=== PATIENT | female | born 1960 | race Caucasian/White ===

== ENCOUNTER 2018-06-04 21:20 | Emergency (ER) | payer OTHER ==
[~2018-06-04] VITALS: Ht 157.5 cm; Wt 80.7 kg
[~2018-06-04 21:20] MED LIST: ALPR0.5T PO; AMLO5TAB7 PO; FURO-68 PO; LITH300C PO; OXYC1TAB15 PO; ROPI0.5T PO; TIOT18CA IH
[2018-06-04] MEDS ORDERED: IV NORMAL SALINE 1000ML BAG 1,000 ML IV SCH (21:40)
[2018-06-04] MEDS ORDERED: ONDANSETRON PF 4 MG/2 ML VIAL. IV ONE (21:45)
--- NOTE | 2018-06-04 21:45 | PHYS DOC ---
Past Medical History Past Medical History: Bipolar, Cancer (cervical, breast, and anal cancer) Past Surgical History: Appendectomy Smoking: Cigarettes, 1 Pack Per Day Adult General Chief Complaint Chief Complaint: ABDOMINAL PAIN HPI HPI Patient is a 57-year-old female who presents to the emergency department for evaluation. She states that for the past week, she has had generalized abdominal pain, along with vomiting whenever she tries to eat. She states that she has been having bowel movements, but they have been hard. She has not had any bloody emesis or bloody stools. She denies any chest pain or shortness of breath. Eating seems to worsen her pain and precipitate or vomiting. There are no alleviating factors to her symptoms. She has not had any fevers or chills. She is currently followed by [facility] for anal cancer, she states her last chemotherapy was about a year ago. Review of Systems Review of Systems Constitutional: Denies fever or chills [] Eyes: Denies change in visual acuity, redness, or eye pain [] HENT: Denies nasal congestion or sore throat [] Respiratory: Denies cough or shortness of breath [] Cardiovascular:The patient denies any shortness of breath, chest pain, palpitations, or orthopnea [] GI: No additional information not addressed in HPI [] : Denies dysuria or hematuria [] Musculoskeletal: Denies back pain or joint pain [] Integument: Denies rash or skin lesions [] Neurologic: Denies headache, focal weakness or sensory changes [] Endocrine: Denies polyuria or polydipsia [] All other systems were reviewed and found to be within normal limits, except as documented in this note. Current Medications Current Medications Current Medications Medications (Trade) Dose Ordered Sig/Alise Start Time Stop Time Status Last Admin Dose Admin Info (CONTRAST GIVEN -- Rx MONITORING) 1 each PRN DAILY PRN 06/04/18 22:30 06/06/18 22:29 Iohexol (Omnipaque 300 Mg/ml) 60 ml 1X ONCE 06/04/18 22:15 06/04/18 22:17 DC 06/04/18 22:31 60 ML Morphine Sulfate (Morphine Sulfate) 4 mg PRN Q15MIN PRN 06/04/18 21:45 06/05/18 21:44 06/04/18 23:01 4 MG Ondansetron HCl (Zofran) 4 mg 1X ONCE 06/04/18 21:45 06/04/18 21:46 DC 06/04/18 21:57 4 MG Sodium Chloride 1,000 ml @ 1,000 mls/hr Q1H 06/04/18 21:40 06/04/18 22:39 DC 06/04/18 21:56 1,000 MLS/HR Allergies Allergies Allergies Coded Allergies Type Severity Reaction Last Updated Verified Penicillins Allergy Intermediate Hives 07/31/15 Yes codeine Allergy Intermediate Hives 07/31/15 Yes Physical Exam Physical Exam PHYSICAL EXAM: CONSTITUTIONAL: Well developed, well nourished HEAD: normocephalic, atraumatic EENT: PERRL, EOMI. Conjunctivae normal color, sclerae non-icteric; moist mucous membranes. NECK: Supple, non-tender; no meningismus. LUNGS: Lungs CTA, breathing even and unlabored. Normal air movement. HEART: Regular rate and rhythm, no murmur CHEST: No deformity; non-tender ABDOMEN: The abdomen is soft, normal bowel sounds are present, there is diffuse tenderness to palpation to the entire abdomen, without focal tenderness, rebound , guarding, normal bowel sounds are present, the right upper quadrant itself is relatively non-tender, Mann sign is absent, no masses or bruits. EXTREM: Normal ROM; no deformity, no calf tenderness. Normal pulses palpable in all extremities. There is no pedal edema. SKIN: No rash; no diaphoresis NEURO: Alert; normal speech and cognition; CN's grossly intact; strength grossly intact without focal deficit. BACK: No CVA TTP. Current Patient Data Vital Signs Vital Signs Date Time Temp Pulse Resp B/P (MAP) Pulse Ox O2 Delivery O2 Flow Rate FiO2 06/04/18 23:20 77 14 153/66 (95) 96 Room Air 06/04/18 21:24 97.9 97.9 Lab Values Laboratory Tests Test 06/04/18 21:29 06/04/18 21:38 White Blood Count 7.0 x10^3/uL (4.0-11.0) Red Blood Count 3.64 x10^6/uL (3.50-5.40) Hemoglobin 9.4 g/dL (12.0-15.5) L Hematocrit 28.6 % (36.0-47.0) L Mean Corpuscular Volume 79 fL (79-100) Mean Corpuscular Hemoglobin 26 pg (25-35) Mean Corpuscular Hemoglobin Concent 33 g/dL (31-37) Red Cell Distribution Width 21.8 % (11.5-14.5) H Platelet Count 286 x10^3/uL (140-400) Neutrophils (%) (Auto) 74 % (31-73) H Lymphocytes (%) (Auto) 16 % (24-48) L Monocytes (%) (Auto) 7 % (0-9) Eosinophils (%) (Auto) 2 % (0-3) Basophils (%) (Auto) 1 % (0-3) Neutrophils # (Auto) 5.2 x10^3uL (1.8-7.7) Lymphocytes # (Auto) 1.1 x10^3/uL (1.0-4.8) Monocytes # (Auto) 0.5 x10^3/uL (0.0-1.1) Eosinophils # (Auto) 0.1 x10^3/uL (0.0-0.7) Basophils # (Auto) 0.0 x10^3/uL (0.0-0.2) Platelet Estimate Adequate (ADEQUATE) Hypochromasia Slight Anisocytosis Mod Ovalocytes Few Sodium Level 140 mmol/L (136-145) Potassium Level 4.0 mmol/L (3.5-5.1) Chloride Level 104 mmol/L (98-107) Carbon Dioxide Level 24 mmol/L (21-32) Anion Gap 12 (6-14) Blood Urea Nitrogen 11 mg/dL (7-20) Creatinine 1.0 mg/dL (0.6-1.0) Estimated GFR (Cockcroft-Gault) 57.4 BUN/Creatinine Ratio 11 (6-20) Glucose Level 96 mg/dL (70-99) Lactic Acid Level 1.1 mmol/L (0.4-2.0) Calcium Level 8.7 mg/dL (8.5-10.1) Total Bilirubin 0.1 mg/dL (0.2-1.0) L Aspartate Amino Transferase (AST) 18 U/L (15-37) Alanine Aminotransferase (ALT) 15 U/L (14-59) Alkaline Phosphatase 91 U/L (46-116) Troponin I Quantitative < 0.017 ng/mL (0.000-0.055) Total Protein 7.1 g/dL (6.4-8.2) Albumin 3.2 g/dL (3.4-5.0) L Albumin/Globulin Ratio 0.8 (1.0-1.7) L Lipase 196 U/L (73-393) Urine Collection Type Unknown Urine Color Yellow Urine Clarity Clear Urine pH 7.0 Urine Specific [place] 1.010 Urine Protein Negative mg/dL (NEG-TRACE) Urine Glucose (UA) Negative mg/dL (NEG) Urine Ketones (Stick) Negative mg/dL (NEG) Urine Blood Negative (NEG) Urine Nitrite Negative (NEG) Urine Bilirubin Negative (NEG) Urine Urobilinogen Dipstick 0.2 mg/dL (0.2 mg/dL) Urine Leukocyte Esterase Negative (NEG) Urine RBC Rare /HPF (0-2) Urine WBC Rare /HPF (0-4) Urine Squamous Epithelial Cells Few /LPF Urine Bacteria 0 /HPF (0-FEW) Laboratory Tests 06/04/18 21:29 Laboratory Tests 06/04/18 21:29 EKG EKG [Normal sinus rhythm at a rate of 60 beats for minute, leftward axis, normal intervals, nonspecific ST/T changes.] Radiology/Procedures Radiology/Procedures [PROCEDURE: CT ABD PELV W/ IV CONTRST ONLY INDICATION: mid abd pain x 3 weeks, n/v, [id number] 60ml, no priors COMPARISON: None. TECHNIQUE: Axial CT images obtained through the abdomen and pelvis with contrast. One or more of the following individualized dose reduction techniques were utilized for this examination: 1. Automated exposure control; 2. Adjustment of the mA and/or kV according to patient size; 3. Use of iterative reconstruction technique. FINDINGS: Calcific atherosclerosis of abdominal aorta. No intrahepatic bile duct dilation. No peripancreatic fluid collection. Spleen unremarkable. There is some prominence of the bilateral extrarenal pelvis. The urinary bladder is partially distended. Small free fluid in the pelvis. Colonic diverticulosis. Portion of the sigmoid colon is not very distended with wall appearing mildly prominent. Degenerative changes of spine. IMPRESSION: 1. Distention of the bilateral extrarenal pelvis without a definite radiopaque obstructive ureter stone seen. 2. A portion of the sigmoid colon is not distended with prominent appearing wall. There is not definite adjacent inflammatory changes. Could be secondary to a site of contraction but would correlate with symptoms in the region to ensure that there is not a pathologic cause such as stricture or mild inflammation from causes such as diverticulitis.] Course & Med Decision Making Course & Med Decision Making Pertinent Labs and Imaging studies reviewed. (See chart for details) [11:30 PM: The patient's condition remained stable. She is feeling significantly better. She had no vomiting in the emergency department. I discussed test results, the need for close follow-up both with her oncologist, as well as GI for further evaluation, and return precautions. The patient will be covered with antibiotics to cover for the possibility of colitis. Dragon Disclaimer Dragon Disclaimer This electronic medical record was generated, in whole or in part, using a voice recognition dictation system. Departure Departure Impression: Primary Impression: Abdominal pain Additional Impression: Nausea & vomiting Disposition: 01 HOME, SELF-CARE Condition: STABLE Referrals: JONN CUNHA MD (PCP) Patient Instructions: Abdominal Pain, Colitis, Nausea and Vomiting Scripts Promethazine Hcl (PROMETHAZINE HCL) 25 Mg Tablet 1 TAB PO PRN Q6HRS for nausea vomitng, #20 TAB Prov: AMNA TRAMMELL MD 06/04/18 Metronidazole (FLAGYL) 500 Mg Tablet 1 TAB PO BID, #14 TAB Prov: AMNA TRAMMELL MD 06/04/18 Ciprofloxacin Hcl (CIPRO) 500 Mg Tablet 1 TAB PO BID, #14 TAB Prov: AMNA TRAMMELL MD 06/04/18 Problem Qualifiers AMNA TRAMMELL MD Jun 04, 2018 21:45
[2018-06-04 21:52] LABS: BASO % 1 % (0-3); EOS # 0.1 x10^3/uL (0.0-0.7); EOS % 2 % (0-3); HEMATOCRIT 28.6 % (36.0-47.0); HEMOGLOBIN 9.4 g/dL (12.0-15.5); LYMPH # 1.1 x10^3/uL (1.0-4.8); LYMPH % 16 % (24-48); MEAN CORPUSCULAR HEMOGLOBIN 26 pg (25-35); MEAN CORPUSCULAR HGB CONC 33 g/dL (31-37); MEAN CORPUSCULAR VOLUME 79 fL (79-100); MONO # 0.5 x10^3/uL (0.0-1.1); MONO % 7 % (0-9); NEUT # 5.2 x10^3uL (1.8-7.7); NEUT % 74 % (31-73); PLATELET COUNT 286 x10^3/uL (140-400); RED BLOOD COUNT 3.64 x10^6/uL (3.50-5.40); RED CELL DISTRIBUTION WIDTH 21.8 % (11.5-14.5)
[2018-06-04 21:53] LABS: BILIRUBIN,URINE NEGATIVE (NEG); CLARITY,URINE CLEAR; COLOR,URINE YELLOW; NITRITE,URINE NEGATIVE (NEG); PROTEIN,URINE NEGATIVE (NEG-TRACE); UROBILINOGEN,URINE 0.2 mg/dL (0.2 mg/dL)
[2018-06-04] MEDS: MORPHINE SULFATE 4 MG/ML VIAL. IV/SQ PRN ×2 (21:58→23:01)
[2018-06-04 22:02] LABS: BACTERIA,URINE 0 /HPF (0-FEW); RBC,URINE RARE /HPF (0-2); SQUAMOUS EPITHELIAL CELL,UR FEW /LPF; WBC,URINE RARE /HPF (0-4)
[2018-06-04 22:10] LABS: CALCIUM 8.7 mg/dL (8.5-10.1); GFR 57.4
[2018-06-04 22:15] LABS: ANISOCYTOSIS MOD; HYPOCHROMIA SLIGHT; OVALOCYTES FEW; PLT ESTIMATE ADEQUATE (ADEQUATE)
[2018-06-04] MEDS ORDERED: IOHEXOL 300 MG/ML 100ML VIAL. IV ONE (22:15)
[2018-06-04 22:23] LABS: ALBUMIN 3.2 g/dL (3.4-5.0); ALBUMIN/GLOBULIN RATIO 0.8 (1.0-1.7); TOTAL BILIRUBIN 0.1 mg/dL (0.2-1.0); TOTAL PROTEIN 7.1 g/dL (6.4-8.2)
[2018-06-04] MEDS ORDERED: CONTRAST GIVEN. MC PRN (22:30)
--- NOTE | 2018-06-04 23:10 | RAD ---
INDICATION: mid abd pain x 3 weeks, n/v, [id number] 60ml, no priors COMPARISON: None. TECHNIQUE: Axial CT images obtained through the abdomen and pelvis with contrast. One or more of the following individualized dose reduction techniques were utilized for this examination: 1. Automated exposure control; 2. Adjustment of the mA and/or kV according to patient size; 3. Use of iterative reconstruction technique. FINDINGS: Calcific atherosclerosis of abdominal aorta. No intrahepatic bile duct dilation. No peripancreatic fluid collection. Spleen unremarkable. There is some prominence of the bilateral extrarenal pelvis. The urinary bladder is partially distended. Small free fluid in the pelvis. Colonic diverticulosis. Portion of the sigmoid colon is not very distended with wall appearing mildly prominent. Degenerative changes of spine. IMPRESSION: 1. Distention of the bilateral extrarenal pelvis without a definite radiopaque obstructive ureter stone seen. 2. A portion of the sigmoid colon is not distended with prominent appearing wall. There is not definite adjacent inflammatory changes. Could be secondary to a site of contraction but would correlate with symptoms in the region to ensure that there is not a pathologic cause such as stricture or mild inflammation from causes such as diverticulitis. Electronically signed by: Sagar Galindo MD (06/04/2018 11:06 PM) [facility]
[2018-06-04 23:20] VITALS: BP 153/66
[2018-06-04] MEDS ORDERED: PROM25TA10 PO (23:33)
[2018-06-04] MEDS ORDERED: CIPR500T94 PO (23:33)
[2018-06-04] MEDS ORDERED: METR500T PO (23:33)
--- NOTE | 2018-06-05 07:01 | EKG ---
[facility] [address] [place] [address] Test Date: 2018-06-04 Test Time: 21:31:38 Pat Name: CARLEY MOORE Department: Room: Gender: F Senior Officer: : 1960 Requested By: AMNA TRAMMELL Order Number: [id number] Reading MD: Terrence Donis Measurements Intervals [place] Rate: 61 P: 0 WI: 174 QRS: -7 QRSD: 86 T: 39 QT: 398 QTc: 406 Interpretive Statements SINUS RHYTHM LEFTWARD AXIS LOW LIMB LEAD VOLTAGE NON SPECIFIC T ABNORMALITY BORDERLINE ECG No previous ECG available for comparison Electronically Signed On 06-10-2018 15:06:39 HUMANITIES COORDINATOR by Terrence Donis
[2018-06-09] MEDS ORDERED: LAMO150T2 PO (21:21)
[2018-06-09] MEDS ORDERED: ONDA8TAB9 PO (21:24)
[2018-06-09] MEDS ORDERED: SERT100T8 PO (21:32)
[2018-06-09] MEDS ORDERED: CLON0.5T11 PO (21:32)
[2018-06-09] MEDS ORDERED: ASPI1TAB31 PO (21:32)
[2018-06-09] MEDS ORDERED: HYDR25TA PO (21:32)
[2018-06-09] MEDS ORDERED: TRAZ-86 PO (21:32)
[2018-06-09] MEDS ORDERED: PRAM0.255 PO (21:32)
[2018-06-09] MEDS ORDERED: ATOR10TA PO (21:33)
[2018-06-11] MEDS ORDERED: POTA20TA82 PO (07:56)
[2018-06-11] MEDS ORDERED: ROPI0.5T2 PO (07:56)
== END 2018-06-05 00:15 | disposition home or self-care (01) ==
LOC: ER 21:20
DX: R10.84 Generalized abdominal pain (principal); R11.2 Nausea with vomiting, unspecified; Z90.89 Acquired absence of other organs; F17.210 Nicotine dependence, cigarettes, uncomplicated
CPT/HCPCS: 36415; 74177; 80053; 81001; 83605; 83690; 84484; 85025; 93005; 96361; 96374; 96375; 96376; 99284; J2270; J2405; J7030; Q9967

== ENCOUNTER → 2018-09-18 | Outpatient (CLI) | payer OTHER ==
[2018-06-19 14:55] VITALS: BP 131/52
[~2018-09-18] MED LIST changes: +AMLO5TAB10 PO; -AMLO5TAB7 PO; +ASPI1TAB31 PO; +ATOR10TA PO; +CIPR500T94 PO; +CLON0.5T11 PO; +HYDR-2761 PO; +HYDR25TA PO; +HYOS0.12 PO; +LAMO150T2 PO; +LUBI8CAP4 PO; +METR500T PO; +ONDA8TAB9 PO; +OXYC1TAB22 PO; +POTA20TA82 PO; +PRAM0.255 PO; +PROM25TA10 PO; +Pantoprazole PO; +ROPI0.5T2 PO; +SERT100T8 PO; +TRAZ-86 PO
--- NOTE | 2018-09-18 15:32 | KCIC ---
MRI of the lumbar spine without contrast 09/18/2018 CLINICAL HISTORY: Low back pain with bilateral leg pain for several months. TECHNIQUE: Unenhanced T1-weighted and T2-weighted sagittal and axial and inversion recovery sagittal images of the lumbar spine were obtained. FINDINGS: For the purposes of this dictation 5 lumbar vertebrae have been assumed. L5 is partially sacralized. A hypoplastic disc is seen at L5-S1. Minimal S-shaped curvature of the thoracolumbar spine is seen. Degenerative signal changes are seen involving the L4-5 disc. Degenerative signal changes are seen within the marrow surrounding this disc. The conus medullaris is within normal limits in morphology, position, and signal characteristics. The L1-2 and L2-3 disc spaces are within normal limits. At the L3-4 disc space there is a minimal generalized disc bulge. Degenerative changes are seen involving the facet joints bilaterally. There is mild ligamentum flavum hypertrophy bilaterally. There are small facet joint effusions. These findings do not result in significant central spinal canal or neural foraminal stenosis. At the L4-5 disc space there is a mild to moderate generalized disc bulge. This is eccentric to the left. Superimposed on this disc bulge is a focal central disc protrusion. This measures 3 mm in AP diameter. Degenerative changes are seen involving the facet joints bilaterally. There is mild ligamentum flavum hypertrophy bilaterally. There are small facet joint effusions. These findings do not result in significant central spinal canal or neural foraminal stenosis. The L5-S1 disc space is within normal limits. IMPRESSION: The changes of degenerative disc disease are seen involving the mid and lower lumbar spine. These findings do not result in significant central spinal canal or neural foraminal stenosis. Electronically signed by: Edward Larson MD (09/18/2018 3:29 PM) [id number]
== END | disposition home or self-care (01) ==
LOC: KCIC MRI 14:16
PROVIDERS: ATTEND Physician Assistant
DX: M51.36 Other intervertebral disc degeneration, lumbar region (principal); M48.061 Spinal stenosis, lumbar region without neurogenic claudication; M25.48 Effusion, other site; M51.26 Other intervertebral disc displacement, lumbar region
CPT/HCPCS: 72148

== ENCOUNTER 2019-11-14 07:32 | Emergency (ER) | payer OTHER, MEDICAID ==
[~2019-11-14] VITALS: Ht 152.4 cm; Wt 66.4 kg
[~2019-11-14 07:32] MED LIST changes: +CLON-77 PO; -CLON0.5T11 PO; -LAMO150T2 PO; +LAMO150T4 PO; +POTA20TA4 PO; -POTA20TA82 PO; -ROPI0.5T2 PO; +ROPI0.5T4 PO; +TRAZ-123 PO; -TRAZ-86 PO
[2019-11-14 07:35] VITALS: BP 153/70
--- NOTE | 2019-11-14 07:56 | PHYS DOC ---
Past Medical History Past Medical History: Bipolar, Cancer Additional Past Medical Histor: BREAST,ANAL AND CERVICAL CA, Past Surgical History: Appendectomy, Hip Replacement, Hysterectomy Additional Past Surgical Histo: BLAT BREAST REDUCTION,ANAL RESECTION, RT hip replacement Smoking Status: Former Smoker Additional Information: quit smoking May 2019 Alcohol Use: Occasionally Drug Use: None General Adult EDM: Chief Complaint: MECHANICAL FALL HPI: HPI: Patient is a 59 year old female who presented to ER today for evaluation of right hip pain. Patient says she fell off her chair yesterday, laid on her right hip, she had had pain ever since. She was able to walk with pain. Patient had a right hip replaced about 3 months ago. Patient denies any other injury. Patient denies any back pain, no knee pain. Review of Systems: Review of Systems: Constitutional: Denies fever or chills. [] Eyes: Denies change in visual acuity. [] HENT: Denies nasal congestion or sore throat. [] Respiratory: Denies cough or shortness of breath. [] Cardiovascular: Denies chest pain or edema. [] GI: Denies abdominal pain, nausea, vomiting, bloody stools or diarrhea. [] : Denies dysuria. [] Musculoskeletal: Denies back pain , positive for right hip pain Integument: Denies rash. [] Neurologic: Denies headache, focal weakness or sensory changes. [] Endocrine: Denies polyuria or polydipsia. [] Lymphatic: Denies swollen glands. [] Psychiatric: Denies depression or anxiety. [] Heart Score: Risk Factors: Risk Factors: DM, Current or recent (<one month) smoker, HTN, HLP, family history of CAD, obesity. Risk Scores: Score 0 - 3: 2.5% MACE over next 6 weeks - Discharge Home Score 4 - 6: 20.3% MACE over next 6 weeks - Admit for Clinical Observation Score 7 - 10: 72.7% MACE over next 6 weeks - Early Invasive Strategies Current Medications: Current Medications Medications (Trade) Dose Ordered Sig/Alise Start Time Stop Time Status Last Admin Dose Admin Acetaminophen/ Hydrocodone Bitart (Lortab 5/325) 1 tab 1X ONCE 11/14/19 08:00 11/14/19 08:01 UNV Allergies: Allergies: Allergies Coded Allergies Type Severity Reaction Last Updated Verified Penicillins Allergy Intermediate Hives 06/18/18 Yes codeine Allergy Intermediate Hives 06/18/18 Yes morphine Adverse Reaction Intermediate hives 06/18/18 Yes Physical Exam: PE: Constitutional: Well developed, well nourished, no acute distress, non-toxic appearance. [] HENT: Normocephalic, atraumatic, bilateral external ears normal, oropharynx moist, no oral exudates, nose normal. [] Eyes: PERRLA, EOMI, conjunctiva normal, no discharge. [] Neck: Normal range of motion, no tenderness, supple, no stridor. [] Cardiovascular:Heart rate regular rhythm, no murmur [] Lungs & Thorax: Bilateral breath sounds clear to auscultation [] Abdomen: Bowel sounds normal, soft, no tenderness, no masses, no pulsatile masses. [] Skin: Warm, dry, no erythema, no rash. [] Back: No tenderness, no CVA tenderness. [] Extremities: There is tenderness to palpation on right hip, no deformity noted Neurologic: Alert and oriented X 3, normal motor function, normal sensory function, no focal deficits noted. [] Psychologic: Affect normal, judgement normal, mood normal. [] EKG: EKG: [] Radiology/Procedures: Radiology/Procedures: [][facility] [address] [place] [address] IMAGING REPORT Signed PATIENT: CARLEY MOORE ACCOUNT: [id number] : 1960 LOCATION: ER AGE: 59 SEX: F EXAM STATUS: REG ER ORD. PHYSICIAN: JONN PINEDO DO REASON: fell yesterday out of chair, right hip and pelvic pain PROCEDURE: HIP RIGHT 2V WITH PELVIS AP pelvis and right hip AP and frog-leg lateral x-rays HISTORY: Fall, right hip and pelvic pain. FINDINGS: Postoperative changes of total right hip arthroplasty new from prior studies. Mild bone cyst along the lateral [place] acetabulum adjacent of the cup prosthesis stable to prior imaging. No periprosthetic fracture. No bone lysis surrounding the hardware to suggest loosening. No dislocation. There is a 1 cm oblong ossification just above the femoral greater trochanter on the frontal view not apparent on prior studies most likely a retained postsurgical bony fragment or focus of soft tissue heterotopic ossification, no donor site from the adjacent bone to suggest an avulsion fracture. Densities overlapping the pubic symphysis are new from prior imaging presumably related to injection for urinary incontinence. IMPRESSION: Postoperative change of a total right hip arthroplasty since prior imaging. No fracture, dislocation or loosening evident. See above. Electronically signed by: Santo Guadalupe MD (11/14/2019 8:18 AM) [id number] DICTATED and SIGNED BY: SANTO GUADALUPE MD DATE: 11/14/19817 Course & Med Decision Making: Course & Med Decision Making Pertinent Labs and Imaging studies reviewed. (See chart for details) Patient is a 59-year-old female who was evaluated in ER due to right hip pain after she fell yesterday, x-ray did not show any acute fracture. Patient will be discharged home with pain medication, she was instructed to follow-up with her family doctor for reevaluation if she continues to have pain or to follow- up with her surgeon at [facility] for evaluation. Patient is amenable to plan of care. Dragon Disclaimer: Dragon Disclaimer: This electronic medical record was generated, in whole or in part, using a voice recognition dictation system. Departure Departure Impression: Primary Impression: Contusion of hip, right Disposition: 01 HOME, SELF-CARE Condition: STABLE Referrals: JONN CUNHA MD (PCP) please follow up with your doctor as needed for reevaluation if you continue to have pain next week Patient Instructions: Contusion, Hip Pain Additional Instructions: Thank you for visiting our Emergency Department. We appreciate you trusting us with your care. If any additional problems come up don't hesitate to return to visit us. Please follow up with your primary care provider so they can plan additional care if needed and know about the problem that you had. If symptoms worsen come back to the Emergency Department. Any concerning symptoms that start such as chest pain, shortness of air, weakness or numbness on one side of the body, running high fevers or any other concerning symptoms return to the ER. Scripts Oxycodone HCl/Acetaminophen (Percocet 5-325 mg Tablet) 1 Each Tablet 1 TAB PO QIDPRN PRN for PAIN MDD 4 Tablet(s), #12 TAB 0 Refills Prov: JONN PINEDO DO 11/14/19 Justicifation of Admission Dx: Justifications for Admission: Justification of Admission Dx: N/A JONN PINEDO DO Nov 14, 2019 07:56
[2019-11-14] MEDS ORDERED: HYDROcodone/APAP 5/325MG 1 TAB TABLET PO ONE (08:00)
--- NOTE | 2019-11-14 08:21 | RAD ---
AP pelvis and right hip AP and frog-leg lateral x-rays HISTORY: Fall, right hip and pelvic pain. FINDINGS: Postoperative changes of total right hip arthroplasty new from prior studies. Mild bone cyst along the lateral robinson acetabulum adjacent of the cup prosthesis stable to prior imaging. No periprosthetic fracture. No bone lysis surrounding the hardware to suggest loosening. No dislocation. There is a 1 cm oblong ossification just above the femoral greater trochanter on the frontal view not apparent on prior studies most likely a retained postsurgical bony fragment or focus of soft tissue heterotopic ossification, no donor site from the adjacent bone to suggest an avulsion fracture. Densities overlapping the pubic symphysis are new from prior imaging presumably related to injection for urinary incontinence. IMPRESSION: Postoperative change of a total right hip arthroplasty since prior imaging. No fracture, dislocation or loosening evident. See above. Electronically signed by: Scotty Guadalupe MD (11/14/2019 8:18 AM) [id number]
[2019-11-14] MEDS ORDERED: OXYC-325 PO (08:27)
== END 2019-11-14 08:36 | disposition home or self-care (01) ==
LOC: ER 07:32
DX: S70.01XA Contusion of right hip, initial encounter (principal); F31.9 Bipolar disorder, unspecified; Z87.891 Personal history of nicotine dependence; Z88.0 Allergy status to penicillin; Z88.5 Allergy status to narcotic agent; W07.XXXA Fall from chair, initial encounter; Y93.89 Activity, other specified; Y92.89 Other specified places as the place of occurrence of the external cause; Y99.8 Other external cause status
CPT/HCPCS: 73502; 99284

== ENCOUNTER 2020-02-13 17:50 | Emergency (ER) | payer OTHER, MEDICAID ==
[~2020-02-13] VITALS: Ht 152.4 cm; Wt 63.6 kg
[~2020-02-13 17:50] MED LIST changes: +OXYC-325 PO
--- NOTE | 2020-02-13 19:02 | PHYS DOC ---
Past Medical History Past Medical History: Bipolar, Cancer Additional Past Medical Histor: BREAST,ANAL AND CERVICAL CA, Past Surgical History: Appendectomy, Hip Replacement, Hysterectomy Additional Past Surgical Histo: BLAT BREAST REDUCTION,ANAL RESECTION, RT hip replacement Smoking Status: Former Smoker Alcohol Use: Occasionally Drug Use: None General Adult EDM: Chief Complaint: DIARRHEA HPI: HPI: Patient is a 59 year old female presents with the chief complaint of abdominal pain associated with nausea vomiting and diarrhea x 3 days. Pain is located inferior to umbilicus-- it does not radiate. Review of Systems: Review of Systems: Constitutional: Denies fever or chills. [] Eyes: Denies change in visual acuity. [] HENT: Denies nasal congestion or sore throat. [] Respiratory: Denies cough or shortness of breath. [] Cardiovascular: Denies chest pain or edema. [] GI: positive abdominal pain, nausea, vomiting, diarrhea. [] : Denies dysuria. [] Musculoskeletal: Denies back pain or joint pain. [] Integument: Denies rash. [] Neurologic: Denies headache, focal weakness or sensory changes. [] Endocrine: Denies polyuria or polydipsia. [] Lymphatic: Denies swollen glands. [] Psychiatric: Denies depression or anxiety. [] Heart Score: Risk Factors: Risk Factors: DM, Current or recent (<one month) smoker, HTN, HLP, family history of CAD, obesity. Risk Scores: Score 0 - 3: 2.5% MACE over next 6 weeks - Discharge Home Score 4 - 6: 20.3% MACE over next 6 weeks - Admit for Clinical Observation Score 7 - 10: 72.7% MACE over next 6 weeks - Early Invasive Strategies Allergies: Allergies: Allergies Coded Allergies Type Severity Reaction Last Updated Verified Penicillins Allergy Intermediate Hives 06/18/18 Yes codeine Allergy Intermediate Hives 06/18/18 Yes acetaminophen Allergy Unknown hives 02/13/20 No fentanyl Allergy Unknown Hives 02/13/20 No oxycodone Allergy Unknown Hives 02/13/20 Yes morphine Adverse Reaction Intermediate hives 06/18/18 Yes Physical Exam: PE: Constitutional: Well developed, well nourished, no acute distress, non-toxic appearance. [] HENT: Normocephalic, atraumatic, bilateral external ears normal, oropharynx moist, no oral exudates, nose normal. [] Eyes: PERRLA, EOMI, conjunctiva normal, no discharge. [] Neck: Normal range of motion, no tenderness, supple, no stridor. [] Cardiovascular:Heart rate regular rhythm, no murmur [] Lungs & Thorax: Bilateral breath sounds clear to auscultation [] Abdomen: Bowel sounds normal, soft, no tenderness inferior to umbilicus, no masses, no pulsatile masses. no rebound or guarding[] Skin: Warm, dry, no erythema, no rash. [] Back: No tenderness, no CVA tenderness. [] Extremities: No tenderness, no cyanosis, no clubbing, ROM intact, no edema. [] Neurologic: Alert and oriented X 3, normal motor function, normal sensory function, no focal deficits noted. [] Psychologic: Affect normal, judgement normal, mood normal. [] Current Patient Data: Vital Signs: Vital Signs Date Time Temp Pulse Resp B/P (MAP) Pulse Ox O2 Delivery O2 Flow Rate FiO2 02/13/20 18:47 98.1 65 26 181/80 (113) 97 Room Air 98.1 EKG: EKG: [] Radiology/Procedures: Radiology/Procedures: [] Course & Med Decision Making: Course & Med Decision Making Pertinent Labs and Imaging studies reviewed. (See chart for details) [] All results reviewed and discussed with patient. Patient is concerned that there is a hole in her stomach. CT imaging performed no free air identified no acute abnormalities mentioned by radiologist intra-abdominal E. Patient's abdomen is soft not distended there is some tenderness to palpation but there is no rebound or guarding. Patient states she was previously prescribed Percocet 7.5/325 for her chronic pain. She states she is out of this medication. Patient states she has a follow-up appoint with with her oncologist on February 17. Patient will be discharged home with prescription Percocet. Patient advised to follow-up with her oncologist. Patient advised between now and February 17 if her pain returns persist or gets worse that she should return for reevaluation. Wayneon Disclaimer: Ariella Disclaimer: This electronic medical record was generated, in whole or in part, using a voice recognition dictation system. Departure Departure Impression: Primary Impression: Abdominal pain Additional Impression: Gastroenteritis Disposition: HOME, SELF-CARE Condition: STABLE Referrals: JONN CUNHA MD (PCP) Patient Instructions: Abdominal Pain, Viral Gastroenteritis Scripts Oxycodone/Apap 7.5-325 (PERCOCET 7.5-325 MG TABLET ) 1 Each Tablet 1 TAB PO QIDPRN PRN for PAIN MDD 4 Tablet(s) for 5 Days, #20 TAB 0 Refills Prov: PARTHA DIAMOND DO 02/13/20 Justicifation of Admission Dx: Justifications for Admission: Justification of Admission Dx: N/A PARTHA DIAMOND DO Feb 13, 2020 19:02
[2020-02-13] MEDS ORDERED: IV NORMAL SALINE 1000ML BAG 1,000 ML IV ONE (19:15)
[2020-02-13] MEDS ORDERED: IOHEXOL 300 MG/ML 100ML VIAL. IJ ONE (19:15)
[2020-02-13] MEDS ORDERED: CONTRAST GIVEN. MC PRN (19:30)
[2020-02-13] MEDS ORDERED: KETOROLAC 30 MG/ML VIAL. IVP ONE (19:45)
[2020-02-13 20:18] LABS: BASO % 1 % (0-3); EOS # 0.1 x10^3/uL (0.0-0.7); EOS % 2 % (0-3); HEMATOCRIT 33.3 % (36.0-47.0); HEMOGLOBIN 11.1 g/dL (12.0-15.5); LYMPH % 19 % (24-48); MEAN CORPUSCULAR HEMOGLOBIN 29 pg (25-35); MEAN CORPUSCULAR HGB CONC 33 g/dL (31-37); MEAN CORPUSCULAR VOLUME 88 fL (79-100); MONO # 0.5 x10^3/uL (0.0-1.1); MONO % 8 % (0-9); NEUT # 3.9 x10^3/uL (1.8-7.7); NEUT % 70 % (31-73); PLATELET COUNT 212 x10^3/uL (140-400); RED BLOOD COUNT 3.78 x10^6/uL (3.50-5.40); RED CELL DISTRIBUTION WIDTH 18.4 % (11.5-14.5); WHITE BLOOD COUNT 5.6 x10^3/uL (4.0-11.0)
[2020-02-13 20:24] LABS: BILIRUBIN,URINE NEGATIVE (NEG); CLARITY,URINE CLEAR; NITRITE,URINE NEGATIVE (NEG); PROTEIN,URINE NEGATIVE (NEG-TRACE); UROBILINOGEN,URINE 0.2 mg/dL (0.2 mg/dL)
[2020-02-13 20:26] LABS: CALCIUM 8.9 mg/dL (8.5-10.1); GFR 56.9; POTASSIUM 3.4 mmol/L (3.5-5.1)
[2020-02-13 20:28] LABS: COLOR,URINE STRAW
[2020-02-13 20:29] LABS: BACTERIA,URINE FEW /HPF (0-FEW); RBC,URINE 0 /HPF (0-2); SQUAMOUS EPITHELIAL CELL,UR FEW /LPF; WBC,URINE 0 /HPF (0-4)
[2020-02-13 20:32] LABS: ALBUMIN 3.6 g/dL (3.4-5.0); ALBUMIN/GLOBULIN RATIO 0.9 (1.0-1.7); TOTAL BILIRUBIN 0.2 mg/dL (0.2-1.0); TOTAL PROTEIN 7.5 g/dL (6.4-8.2)
--- NOTE | 2020-02-13 21:10 | RAD ---
Abdominal and Pelvis CT, Without Contrast: History: Reason: abd pain, N/V/D, CONTRAST ALLERGY / Spl. Instructions: / History: Comparison: June 16, 2018. Procedure: Axial images are obtained of the abdomen and pelvis, without IV or oral contrast. Oral Contrast: No Findings: Evaluation of solid organs is limited without contrast. Liver: Normal. Spleen: Normal. Pancreas: Normal. Adrenal Glands: Normal. Kidneys: Prominence of the renal pelvises bilaterally was seen previously and is likely extrarenal pelvises. There is no free air or free fluid. There is no lymphadenopathy. The there is ossification to the floor the pelvis inferior to the urinary bladder. There is beam Franco artifact due to right hip total arthroplasty. Urinary bladder appears normal. There is no pericolonic inflammation identified. Impression: 1. Interval right hip total arthroplasty. 2. Ossifications in the floor of the pelvis just inferior to the urinary bladder at the midline and on the right. The patient does have a history of multiple surgeries and this could be myositis ossificans. Clinical correlation suggested. End impression PQRS Compliance Statement: One or more of the following individualized dose reduction techniques were utilized for this examination: 1. Automated exposure control 2. Adjustment of the mA and/or kV according to patient size 3. Use of iterative reconstruction technique Electronically signed by: Tony Baldwin III, MD (02/13/2020 9:07 PM) [facility]
[2020-02-13] MEDS ORDERED: OXYC1TAB19 PO (21:34)
[2020-02-13 22:00] VITALS: BP 170/76
[2020-02-13] MEDS ORDERED: oxyCODONE/APAP 7.5/325 1 TAB TABLET PO ONE (22:00)
== END 2020-02-13 22:10 | disposition home or self-care (01) ==
LOC: ER 17:50
DX: K52.9 Noninfective gastroenteritis and colitis, unspecified (principal); F31.9 Bipolar disorder, unspecified; Z90.89 Acquired absence of other organs; Z90.710 Acquired absence of both cervix and uterus; Z96.641 Presence of right artificial hip joint; G89.29 Other chronic pain; Z87.891 Personal history of nicotine dependence; Z88.0 Allergy status to penicillin; Z88.4 Allergy status to anesthetic agent; Z88.5 Allergy status to narcotic agent; Z88.6 Allergy status to analgesic agent
CPT/HCPCS: 36415; 74176; 80053; 81001; 83690; 85025; 96361; 96374; 99285; J1885; J7030

== ENCOUNTER 2020-03-15 14:51 | Emergency (ER) | payer OTHER, MEDICAID ==
[~2020-03-15] VITALS: Ht 152.4 cm; Wt 63.1 kg
[~2020-03-15 14:51] MED LIST changes: +OXYC1TAB19 PO
[2020-03-15] MEDS ORDERED: ASPIRIN CHEWABLE 81 MG TABLET. PO ONE (15:15)
--- NOTE | 2020-03-15 15:33 | RAD ---
EXAM: PORTABLE CHEST 1V 03/15/2020 3:08 PM CLINICAL INDICATION:Left chest pain COMPARISON:Chest radiograph 06/16/2018 TECHNIQUE:AP upright view of the chest FINDINGS:A right chest wall port is unchanged with tip at the superior cavoatrial junction. The heart and mediastinum are normal. Lungs are well-expanded and clear. No pleural effusion or pneumothorax. No acute osseous abnormality. IMPRESSION:No acute cardiopulmonary abnormality. Electronically signed by: Zandra Hernandez MD (03/15/2020 3:30 PM) [id number]
[2020-03-15 15:47] LABS: BASO # 0.1 x10^3/uL (0.0-0.2); BASO % 1 % (0-3); EOS # 0.2 x10^3/uL (0.0-0.7); EOS % 3 % (0-3); HEMATOCRIT 32.3 % (36.0-47.0); HEMOGLOBIN 10.7 g/dL (12.0-15.5); LYMPH # 1.1 x10^3/uL (1.0-4.8); LYMPH % 18 % (24-48); MEAN CORPUSCULAR HEMOGLOBIN 28 pg (25-35); MEAN CORPUSCULAR HGB CONC 33 g/dL (31-37); MEAN CORPUSCULAR VOLUME 84 fL (79-100); MONO # 0.5 x10^3/uL (0.0-1.1); MONO % 8 % (0-9); NEUT % 70 % (31-73); PLATELET COUNT 242 x10^3/uL (140-400); RED BLOOD COUNT 3.83 x10^6/uL (3.50-5.40); RED CELL DISTRIBUTION WIDTH 17.7 % (11.5-14.5); WHITE BLOOD COUNT 5.8 x10^3/uL (4.0-11.0)
[2020-03-15 16:00] LABS: CALCIUM 9.3 mg/dL (8.5-10.1); CREATININE 1.1 mg/dL (0.6-1.0); POTASSIUM 4.2 mmol/L (3.5-5.1)
[2020-03-15 16:05] LABS: ALBUMIN 3.2 g/dL (3.4-5.0); ALBUMIN/GLOBULIN RATIO 0.7 (1.0-1.7); TOTAL BILIRUBIN 0.3 mg/dL (0.2-1.0); TOTAL PROTEIN 7.5 g/dL (6.4-8.2)
[2020-03-15] MEDS ORDERED: KETOROLAC 15 MG/ML VIAL. IVP ONE ×2 (16:15→22:30)
--- NOTE | 2020-03-15 18:37 | ED.ADGEN ---
Past Medical History Past Medical History: Bipolar, Cancer Additional Past Medical Histor: BREAST,ANAL AND CERVICAL, OVARIAN CA,MELANOMA Past Surgical History: Appendectomy, Hip Replacement, Hysterectomy Additional Past Surgical Histo: BLAT BREAST REDUCTION,ANAL RESECTION, RT hip replacement Smoking Status: Former Smoker Alcohol Use: Occasionally Drug Use: None Adult General Chief Complaint Chief Complaint: CHEST PAIN HPI HPI Patient is a 59 year old female coming in for numerous complaints including pain "all over", loose stools, right-sided chest pain. Has baseline cough, denies any vomiting or diarrhea. Started having symptoms about 2 days ago. Was released from yesterday after a one-week hospital stay. Review of Systems Review of Systems Constitutional: Denies fever or chills. [] Weakness and fatigue Eyes: Denies change in visual acuity. [] HENT: Denies nasal congestion or sore throat. [] Respiratory: Baseline cough and shortness of breath Cardiovascular: Right-sided chest pain, lateral. Denies any lower extremity edema GI: Diffuse abdominal pain, soft stools denies vomiting or nausea : Denies dysuria. [] Musculoskeletal: Denies back pain or joint pain. [] Integument: Denies rash. [] Neurologic: Denies headache, focal weakness or sensory changes. [] Endocrine: Denies polyuria or polydipsia. [] Lymphatic: Denies swollen glands. [] Psychiatric: Denies depression or anxiety. [] Current Medications Current Medications Current Medications Medications (Trade) Dose Ordered Sig/Alise Start Time Stop Time Status Last Admin Dose Admin Aspirin (Aspirin Chewable) 324 mg 1X ONCE 03/15/20 15:15 03/15/20 15:16 DC 03/15/20 15:24 324 MG Ketorolac Tromethamine (Toradol 15mg Vial) 15 mg 1X ONCE 03/15/20 16:15 03/15/20 16:16 DC 03/15/20 16:27 15 MG Allergies Allergies Allergies Coded Allergies Type Severity Reaction Last Updated Verified iohexol Allergy Severe Swelling 02/13/20 Yes nitroglycerin Allergy Severe Swelling 02/13/20 Yes Penicillins Allergy Intermediate Hives 06/18/18 Yes codeine Allergy Intermediate Hives 06/18/18 Yes fentanyl Allergy Unknown Hives 02/13/20 No morphine Adverse Reaction Intermediate hives 06/18/18 Yes Physical Exam Physical Exam Constitutional: Well developed, well nourished, no acute distress, non-toxic appearance. [] HENT: Normocephalic, atraumatic, bilateral external ears normal, oropharynx moist, no oral exudates, nose normal. [] Eyes: PERRLA, EOMI, conjunctiva normal, no discharge. [] Neck: Normal range of motion, no tenderness, supple, no stridor. [] Cardiovascular:Heart rate regular rhythm, no murmur [] Lungs & Thorax: Equal bilateral breath sounds, faint wheezes, slightly diminished. Abdomen: Bowel sounds normal, soft, bilateral mild diffuse tenderness, nondistended, no masses, no pulsatile masses. [] Skin: Warm, dry, no erythema, no rash. [] Back: No tenderness, no CVA tenderness. [] Extremities: No tenderness, no cyanosis, no clubbing, ROM intact, no edema. [] Neurologic: Alert and oriented X 3, normal motor function, normal sensory function, no focal deficits noted. [] Psychologic: Affect normal, judgement normal, mood normal. [] Current Patient Data Vital Signs Vital Signs Date Time Temp Pulse Resp B/P (MAP) Pulse Ox O2 Delivery O2 Flow Rate FiO2 03/15/20 16:50 44 119/79 (92) 96 Room Air 03/15/20 15:01 98.9 18 98.9 Lab Values Laboratory Tests Test 03/15/20 15:30 White Blood Count 5.8 x10^3/uL (4.0-11.0) Red Blood Count 3.83 x10^6/uL (3.50-5.40) Hemoglobin 10.7 g/dL (12.0-15.5) L Hematocrit 32.3 % (36.0-47.0) L Mean Corpuscular Volume 84 fL (79-100) Mean Corpuscular Hemoglobin 28 pg (25-35) Mean Corpuscular Hemoglobin Concent 33 g/dL (31-37) Red Cell Distribution Width 17.7 % (11.5-14.5) H Platelet Count 242 x10^3/uL (140-400) Neutrophils (%) (Auto) 70 % (31-73) Lymphocytes (%) (Auto) 18 % (24-48) L Monocytes (%) (Auto) 8 % (0-9) Eosinophils (%) (Auto) 3 % (0-3) Basophils (%) (Auto) 1 % (0-3) Neutrophils # (Auto) 4.0 x10^3/uL (1.8-7.7) Lymphocytes # (Auto) 1.1 x10^3/uL (1.0-4.8) Monocytes # (Auto) 0.5 x10^3/uL (0.0-1.1) Eosinophils # (Auto) 0.2 x10^3/uL (0.0-0.7) Basophils # (Auto) 0.1 x10^3/uL (0.0-0.2) D-Dimer (Eusebia) 1.52 ug/mlFEU (0.00-0.50) H Sodium Level 140 mmol/L (136-145) Potassium Level 4.2 mmol/L (3.5-5.1) Chloride Level 105 mmol/L (98-107) Carbon Dioxide Level 29 mmol/L (21-32) Anion Gap 6 (6-14) Blood Urea Nitrogen 12 mg/dL (7-20) Creatinine 1.1 mg/dL (0.6-1.0) H Estimated GFR (Cockcroft-Gault) 51.0 BUN/Creatinine Ratio 11 (6-20) Glucose Level 92 mg/dL (70-99) Calcium Level 9.3 mg/dL (8.5-10.1) Total Bilirubin 0.3 mg/dL (0.2-1.0) Aspartate Amino Transferase (AST) 20 U/L (15-37) Alanine Aminotransferase (ALT) 9 U/L (14-59) L Alkaline Phosphatase 101 U/L (46-116) Troponin I Quantitative < 0.017 ng/mL (0.000-0.055) Total Protein 7.5 g/dL (6.4-8.2) Albumin 3.2 g/dL (3.4-5.0) L Albumin/Globulin Ratio 0.7 (1.0-1.7) L Laboratory Tests 03/15/20 15:30 Laboratory Tests 03/15/20 15:30 EKG EKG Is about a month sinus rhythm, 54 bpm. Instrument axis, no ectopy [] Radiology/Procedures Radiology/Procedures [] Course & Med Decision Making Course & Med Decision Making Pertinent Labs and Imaging studies reviewed. (See chart for details) [] Dragon Disclaimer Dragon Disclaimer This electronic medical record was generated, in whole or in part, using a voice recognition dictation system. Departure Departure Impression: Primary Impression: Weakness Disposition: ADMITTED INPATIENT Admitting Physician: DIMITRI Condition: STABLE Referrals: JONN CUNHA MD (PCP) SISSY JOSEPH MD Mar 15, 2020 18:37
[2020-03-15] MEDS ORDERED: DEXAMETHASONE SOD PHOS 20 MG/5 ML VIAL. IV ONE (19:00)
[2020-03-15] MEDS ORDERED: diphenhydrAMINE 50 MG/ML VIAL IVP ONE (19:00)
[2020-03-15] MEDS ORDERED: MORPHINE SULFATE 10 MG/ML VIAL. IV ONE (19:00)
[2020-03-15] MEDS ORDERED: fentaNYL PF VIAL 100 MCG/2 ML VIAL IVP ONE (19:15)
[2020-03-15] MEDS ORDERED: CONTRAST GIVEN. MC PRN (20:15)
[2020-03-15] MEDS ORDERED: IOHEXOL 350 MG/ML 100 ML VIAL. IV ONE (20:30)
--- NOTE | 2020-03-15 20:31 | RAD ---
CTA chest with contrast dated 03/15/2020. No comparison available. CLINICAL INDICATION: Severe swelling. Elevated d-dimer. TECHNIQUE: Contiguous axial imaging the chest performed following the intravenous administration of 100 cc Isovue-370. Study was performed as dedicated PE protocol with thin cut coronal MIPS 3-D reconstruction. One or more of the following individualized dose reduction techniques were utilized for this examination: 1. Automated exposure control 2. Adjustment of the mA and/or kV according to patient size 3. Use of iterative reconstruction technique FINDINGS: Contrast bolus is adequate. No evidence of central, lobar or segmental pulmonary embolus. Subsegmental branches are not well evaluated based on technique. Heart size upper limits of normal. No pericardial effusion. No mediastinal, hilar or axillary lymphadenopathy. Thyroid gland unremarkable. Central airways are patent. Mild diffuse bronchial wall thickening. There is some patchy and linear opacity in the lower lobes dependently, likely atelectasis. Lungs are otherwise clear. No pleural effusion. No pneumothorax. Mild emphysema. Limited images of the upper abdomen are unremarkable. No significant bony abnormality. Multilevel spondylosis. IMPRESSION: 1. No evidence of central, lobar or segmental pulmonary embolus. 2. Patchy and linear opacity at both lung bases, likely atelectasis. 3. Mild emphysema. Electronically signed by: Franco Munoz MD (03/15/2020 8:28 PM) KARLO
[2020-03-15 21:51] VITALS: BP 135/77
[2020-03-15] MEDS ORDERED: ACETAMINOPHEN 325 MG TABLET. PO ONE (22:30)
[2020-03-15] MEDS ORDERED: AZIT250T PO (22:58)
--- NOTE | 2020-03-15 22:59 | PHYS DOC ---
Past Medical History Past Medical History: Bipolar, Cancer Additional Past Medical Histor: BREAST,ANAL AND CERVICAL, OVARIAN CA,MELANOMA Past Surgical History: Appendectomy, Hip Replacement, Hysterectomy Additional Past Surgical Histo: BLAT BREAST REDUCTION,ANAL RESECTION, RT hip replacement Smoking Status: Former Smoker Alcohol Use: Occasionally Drug Use: None General Adult EDM: Chief Complaint: CHEST PAIN HPI: HPI: I received signout from Dr. Joseph at shift change-59 yo F PMH anal cancer ( in remission) and BPD presents to the ED with complaints of sharp left-sided chest pain that radiates down her arm into her neck for the past week, some associated shortness of breath. Review of Systems: Review of Systems: Constitutional: Denies fever or chills. [] Eyes: Denies change in visual acuity. [] HENT: Denies nasal congestion or sore throat. [] Respiratory: Denies cough or hemoptysis Cardiovascular: Denies syncope or edema. [] GI: Denies abdominal pain, nausea, vomiting, bloody stools or diarrhea. [] : Denies dysuria. [] Musculoskeletal: Denies back pain or joint pain. [] Integument: Denies rash. [] Neurologic: Denies headache, focal weakness or sensory changes. [] Endocrine: Denies polyuria or polydipsia. [] Lymphatic: Denies swollen glands. [] Psychiatric: Denies depression or anxiety. [] Heart Score: HEART Score for Chest Pain: HEART Score for Chest Pain Response (Comments) Value History Slighlty/Non-Suspicious 0 ECG Normal 0 Age >45 - < 65 1 Risk Factors 1 or 2 Risk Factors 1 Troponin < Normal Limit 0 Total 2 Risk Factors: Risk Factors: DM, Current or recent (<one month) smoker, HTN, HLP, family hi story of CAD, obesity. Risk Scores: Score 0 - 3: 2.5% MACE over next 6 weeks - Discharge Home Score 4 - 6: 20.3% MACE over next 6 weeks - Admit for Clinical Observation Score 7 - 10: 72.7% MACE over next 6 weeks - Early Invasive Strategies Current Medications: Current Medications Medications (Trade) Dose Ordered Sig/Alise Start Time Stop Time Status Last Admin Dose Admin Acetaminophen (Tylenol) 650 mg 1X ONCE 03/15/20 22:30 03/15/20 22:31 DC Aspirin (Aspirin Chewable) 324 mg 1X ONCE 03/15/20 15:15 03/15/20 15:16 DC 03/15/20 15:24 324 MG Dexamethasone Sodium Phosphate (Decadron) 10 mg 1X ONCE 03/15/20 19:00 03/15/20 19:01 DC 03/15/20 19:07 10 MG Diphenhydramine HCl (Benadryl) 50 mg 1X ONCE 03/15/20 19:00 03/15/20 19:01 DC 03/15/20 19:05 50 MG Fentanyl Citrate (Fentanyl 2ml Vial) 100 mcg 1X ONCE 03/15/20 19:15 03/15/20 19:16 DC 03/15/20 19:08 100 MCG Info (CONTRAST GIVEN -- Rx MONITORING) 1 each PRN DAILY PRN 03/15/20 20:15 03/17/20 20:14 Iohexol (Omnipaque 350 Mg/ml) 100 ml 1X ONCE 03/15/20 20:30 03/15/20 20:31 DC Ketorolac Tromethamine (Toradol 15mg Vial) 15 mg 1X ONCE 03/15/20 22:30 03/15/20 22:31 DC Morphine Sulfate (Morphine Sulfate) 5 mg 1X ONCE 03/15/20 19:00 03/15/20 18:56 DC Allergies: Allergies: Allergies Coded Allergies Type Severity Reaction Last Updated Verified iohexol Allergy Severe Swelling, OK with premeds 03/15/20 Yes nitroglycerin Allergy Severe Swelling 02/13/20 Yes Penicillins Allergy Intermediate Hives 06/18/18 Yes codeine Allergy Intermediate Hives 06/18/18 Yes morphine Allergy Intermediate hives, OK with premeds 03/15/20 Yes Physical Exam: PE: Constitutional: Well developed, well nourished, no acute distress, non-toxic appearance. [] HENT: Normocephalic, atraumatic, bilateral external ears normal, oropharynx moist, no oral exudates, nose normal. [] Eyes: EOMI, conjunctiva normal, no discharge. [] Neck: Normal range of motion, supple, no stridor. [] Cardiovascular:Heart rate regular rhythm, no murmur [] Lungs & Thorax: Bilateral breath sounds clear to auscultation [] Abdomen: Bowel sounds normal, soft, no tenderness, no masses, no pulsatile masses. [] Skin: Warm, dry, no erythema, no rash. [] Back: No tenderness, no CVA tenderness. [] Extremities: No tenderness, no cyanosis, no clubbing, ROM intact, no edema. [] Neurologic: Alert and oriented X 3, normal motor function, normal sensory function, no focal deficits noted. [] Psychologic: Affect normal, judgement normal, mood normal. [] Current Patient Data: Labs: Laboratory Tests Test 03/15/20 15:30 03/15/20 18:26 03/15/20 21:14 White Blood Count 5.8 x10^3/uL (4.0-11.0) Red Blood Count 3.83 x10^6/uL (3.50-5.40) Hemoglobin 10.7 g/dL (12.0-15.5) L Hematocrit 32.3 % (36.0-47.0) L Mean Corpuscular Volume 84 fL (79-100) Mean Corpuscular Hemoglobin 28 pg (25-35) Mean Corpuscular Hemoglobin Concent 33 g/dL (31-37) Red Cell Distribution Width 17.7 % (11.5-14.5) H Platelet Count 242 x10^3/uL (140-400) Neutrophils (%) (Auto) 70 % (31-73) Lymphocytes (%) (Auto) 18 % (24-48) L Monocytes (%) (Auto) 8 % (0-9) Eosinophils (%) (Auto) 3 % (0-3) Basophils (%) (Auto) 1 % (0-3) Neutrophils # (Auto) 4.0 x10^3/uL (1.8-7.7) Lymphocytes # (Auto) 1.1 x10^3/uL (1.0-4.8) Monocytes # (Auto) 0.5 x10^3/uL (0.0-1.1) Eosinophils # (Auto) 0.2 x10^3/uL (0.0-0.7) Basophils # (Auto) 0.1 x10^3/uL (0.0-0.2) D-Dimer (Eusebia) 1.52 ug/mlFEU (0.00-0.50) H Sodium Level 140 mmol/L (136-145) Potassium Level 4.2 mmol/L (3.5-5.1) Chloride Level 105 mmol/L (98-107) Carbon Dioxide Level 29 mmol/L (21-32) Anion Gap 6 (6-14) Blood Urea Nitrogen 12 mg/dL (7-20) Creatinine 1.1 mg/dL (0.6-1.0) H Estimated GFR (Cockcroft-Gault) 51.0 BUN/Creatinine Ratio 11 (6-20) Glucose Level 92 mg/dL (70-99) Calcium Level 9.3 mg/dL (8.5-10.1) Total Bilirubin 0.3 mg/dL (0.2-1.0) Aspartate Amino Transferase (AST) 20 U/L (15-37) Alanine Aminotransferase (ALT) 9 U/L (14-59) L Alkaline Phosphatase 101 U/L (46-116) Troponin I Quantitative < 0.017 ng/mL (0.000-0.055) < 0.017 ng/mL (0.000-0.055) < 0.017 ng/mL (0.000-0.055) Total Protein 7.5 g/dL (6.4-8.2) Albumin 3.2 g/dL (3.4-5.0) L Albumin/Globulin Ratio 0.7 (1.0-1.7) L Laboratory Tests 03/15/20 15:30 Laboratory Tests 03/15/20 15:30 Vital Signs: Vital Signs Date Time Temp Pulse Resp B/P (MAP) Pulse Ox O2 Delivery O2 Flow Rate FiO2 03/15/20 19:20 54 132/69 (90) 92 Room Air 03/15/20 15:01 98.9 18 98.9 EKG: EKG: no henrry/std Radiology/Procedures: Radiology/Procedures: []IMAGING REPORT Signed PATIENT: CARLEY MOORE ACCOUNT: [id number] : 1960 LOCATION: ER AGE: 59 SEX: F EXAM STATUS: REG ER ORD. PHYSICIAN: DARYL BORJA DO REASON: cp, r/o pe PROCEDURE: CT ANGIOGRAPHY CHEST CTA chest with contrast dated 03/15/2020. No comparison available. CLINICAL INDICATION: Severe swelling. Elevated d-dimer. TECHNIQUE: Contiguous axial imaging the chest performed following the intravenous administration of 100 cc Isovue-370. Study was performed as dedicated PE protocol with thin cut coronal MIPS 3-D reconstruction. One or more of the following individualized dose reduction techniques were utilized for this examination: 1. Automated exposure control 2. Adjustment of the mA and/or kV according to patient size 3. Use of iterative reconstruction technique FINDINGS: Contrast bolus is adequate. No evidence of central, lobar or segmental pulmonary embolus. Subsegmental branches are not well evaluated based on technique. Heart size upper limits of normal. No pericardial effusion. No mediastinal, hilar or axillary lymphadenopathy. Thyroid gland unremarkable. Central airways are patent. Mild diffuse bronchial wall thickening. There is some patchy and linear opacity in the lower lobes dependently, likely atelectasis. Lungs are otherwise clear. No pleural effusion. No pneumothorax. Mild emphysema. Limited images of the upper abdomen are unremarkable. No significant bony abnormality. Multilevel spondylosis. IMPRESSION: 1. No evidence of central, lobar or segmental pulmonary embolus. 2. Patchy and linear opacity at both lung bases, likely atelectasis. 3. Mild emphysema. Electronically signed by: Franco Munoz MD (03/15/2020 8:28 PM) [facility] DICTATED and SIGNED BY: FRANCO MUNOZ MD DATE: 03/15/202027 IMAGING REPORT Signed PATIENT: CARLEY MOORE ACCOUNT: [id number] : 1960 LOCATION: ER AGE: 59 SEX: F EXAM STATUS: PRE ER ORD. PHYSICIAN: ZANDRA JOSEPH MD REASON: left chest pain PROCEDURE: PORTABLE CHEST 1V EXAM: PORTABLE CHEST 1V 03/15/2020 3:08 PM CLINICAL INDICATION:Left chest pain COMPARISON:Chest radiograph 06/16/2018 TECHNIQUE:AP upright view of the chest FINDINGS:A right chest wall port is unchanged with tip at the superior cavoatrial junction. The heart and mediastinum are normal. Lungs are well-expanded and clear. No pleural effusion or pneumothorax. No acute osseous abnormality. IMPRESSION:No acute cardiopulmonary abnormality. Electronically signed by: Zandra Hernandez MD (03/15/2020 3:30 PM) [id number] DICTATED and SIGNED BY: ZANDRA HERNANDEZ MD DATE: 03/15/20 1530 Course & Med Decision Making: Course & Med Decision Making Pertinent Labs and Imaging studies reviewed. (See chart for details) Concern for low risk chest pain x1 week. Creatinine slightly elevated at 1.1, was 1 on prior. Patient afebrile with no leukocytosis. [address] of the chest showed no pulmonary emboli but did show patchy and linear opacities likely atelectasis, will cover for atypical infection with azithromycin. Pt refusing any further work-up and is requesting to be discharged. Is asymptomatic on reevaluation. Strict ED return precautions given for difficulties breathing, worsening chest pain or fever. Encouraged urgent outpatient follow-up with PMD and cardiology. Life-threatening processes were c onsidered but are low suspicion at this time, given history and physical exam. Pt was educated on all prescription medications and adverse effects. All patient's questions were answered and pt was stable at time of discharge. Life/limb-threatening differential includes but is not limited to, acute myocardial infarction, aortic dissection, congestive heart failure, esophageal injury including rupture, surgical abdomen, arrhythmia, cardiomyopathy, myocarditis, pericarditis, peptic ulcer disease, pneumomediastinum, pneumonia, pneumothorax, pulmonary embolus, unstable angina, rib fracture, contusion, pericardial tamponade or effusion, pulmonary contusion I spoken with the patient and her caregivers. I explained the patient's condition, diagnoses and treatment plan based on the information available to me at this time. I have answered the patient and her caregiver's questions and addressed any concerns. The patient and her caregivers have a good understanding of patient's diagnosis, condition and treatment plan as can be expected at this point. Vital signs have been stable. Patient's condition is stable and appropriate for discharge from the emergency department. Patient will pursue further outpatient evaluation with primary care physician or other designated or consulting physician as outlined in the discharge instructions. The patient and/or caregivers are agreeable to this plan of care and follow-up instructions have been explained in detail. The patient and/or caregivers have received these instructions in written form and have expressed an understanding of the discharge instructions. The patient and/or caregivers are aware that any significant change of condition or worsening of symptoms should prompt immediate return to this or the closest emergency department or call to 911. Ariella Disclaimer: Ariella Disclaimer: This electronic medical record was generated, in whole or in part, using a voice recognition dictation system. Departure Departure Impression: Primary Impression: Weakness Additional Impression: Chest pain Disposition: 01 HOME, SELF-CARE Condition: STABLE Referrals: JONN CUNHA MD (PCP) in 48 hours Patient Instructions: Chest Pain (Nonspecific) Additional Instructions: FOLLOW UP WITH CARDIOLOGY: [facility] Address: [address] [address] EMERGENCY DEPARTMENT GENERAL DISCHARGE INSTRUCTIONS Thank you for coming to [facility] Emergency Department (ED) today and trusting us with you care. We trust that you had a positive experience in our Emergency Department. If you wish to speak to the department management, you may call the Director at [phone]. YOUR FOLLOW UP INSTRUCTIONS ARE FOLLOWS: 1. Do you have a private Doctor? If you do not have a private doctor, please ask for a resource list of physicians or clinics that may be able to assist you with follow up care. 2. The Emergency Physicain has interpreted your x-rays. The X-Ray specialist will also review them. If there is a change in the findings, you will be notified in 48 hours when at all possible. 3. A lab test or culture has been done, your results will be reviewed and you will be notified if you need a change in treatment. ADDITIONAL INSTRUCTIONS AND INFORMATION: 1. Your care today has been supervised by a physician who is specially trained in emergency care. Many problems require more than one evaluation for a complete diagnosis and treatment. We recommend that you schedule your follow up appointment as recommended to ensure complete treatment of you illness or injury. If you are unable to obtain follow up care and continue to have a problem, or if your condition worsens, we recommend that you return to the ED. 2. We are not able to safely determine your condition over the phone nor are we able to give sound medical advice over the phone. For these safety reasons, if you call for medical advice we will ask you to come to the ED for further evaluation. 3. If you have any questions regarding these discharge instructions please call the ED at [phone]. SAFETY INFORMATION: In the interest of safety, wellness, and injury prevention; we encourage you to wear your sealbelt, if you smoke; quite smoking, and we encourage family to use a protective helmet for bicycling and other sporting events that present an increased risk for head injury. IF YOUR SYMPTOMS WORSEN OR NEW SYMPTOMS DEVELOP, OR YOU HAVE CONCERNS ABOUT YOUR CONDITION; OR IF YOUR CONDITION WORSENS WHILE YOU ARE WAITING FOR YOUR FOLLOW UP APPOINTMENT; EITHER CONTACT YOUR PRIMARY CARE DOCTOR, THE PHYSICIAN WHOSE NAME AND NUMBER YOU WERE GIVEN, OR RETURN TO THE ED IMMEDIATELY. Scripts Azithromycin (ZITHROMAX) 250 Mg Tablet 1 PKG PO UD, #6 TAB Prov: DARYL BORJA DO 03/15/20 DARYL BORJA DO Mar 15, 2020 22:59
== END 2020-03-15 23:08 | disposition home or self-care (01) ==
LOC: ER 14:51
DX: R53.1 Weakness (principal); M79.10 Myalgia, unspecified site; R19.7 Diarrhea, unspecified; R07.89 Other chest pain; F31.9 Bipolar disorder, unspecified; Z87.891 Personal history of nicotine dependence; Z90.89 Acquired absence of other organs; Z90.710 Acquired absence of both cervix and uterus; Z88.0 Allergy status to penicillin; Z88.4 Allergy status to anesthetic agent; Z88.5 Allergy status to narcotic agent; Z88.8 Allergy status to other drugs, medicaments and biological substances
CPT/HCPCS: 36415; 71045; 71275; 80053; 84484; 85025; 85379; 93005; 96374; 96375; 99285; J1100; J1200; J1885; J3010

== ENCOUNTER → 2020-11-03 | Day surgery (SDC) | payer OTHER, MEDICAID ==
[~2020-11-03] VITALS: Ht 152.4 cm; Wt 139.0 kg
[~2020-11-03] MED LIST changes: +AMLO-186 PO; -AMLO5TAB10 PO; +AZIT250T PO; +HEPARIN PF 500 UNIT/5 ML DISP.SYRIN. IVP ONE; +IV RINGERS,LACTATED 1000ML 1,000 ML IV SCH; +PROPOFOL 10 MG/ML (20ML) VIAL. IV ONE; +SERT-268 PO; -SERT100T8 PO
[2020-11-03 09:17] VITALS: BP 124/58
[2020-11-03 10:14] VITALS: BP 143/67
--- NOTE | 2020-11-03 16:05 | HP ---
ADMIT DATE: 11/03/2020 REFERRING PHYSICIAN: Dr. Eze Rebolledo. REASON FOR CONSULTATION: Diarrhea and history of rectal cancer. HISTORY OF PRESENT ILLNESS: This is a 60-year-old female whose past medical history is significant for hypertension, gastroesophageal reflux disease, and history of rectal cancer with radiation, is seen with persistent with diarrhea with loose, watery, associated with urgency, abdominal pain. Weight and appetite are stable. There has been no recent travel, well water consumption and/or recent antibiotics. OTC remedies have not been helpful. On past history, interval exam is recommended. PAST MEDICAL HISTORY: History of rectal cancer, diarrhea, hypertension, gastroesophageal reflux disease. ALLERGIES: PENICILLIN, CODEINE, MORPHINE, NITROGLYCERIN, AND IOHEXOL. MEDICATIONS: Include amlodipine, clonazepam, lamotrigine, Mirapex, sertraline, trazodone, and pantoprazole. FAMILY AND SOCIAL HISTORY: Significant for breast cancer in the mother, diabetes in the father, ND with the father and hypertension with her mother. She is a social drinker and a smoker. PAST SURGICAL HISTORY: Significant for the radiation, rectal cancer resection. REVIEW OF SYSTEMS: Per records. PHYSICAL EXAMINATION: GENERAL: Reveals a well-nourished, well-developed female who is alert, cooperative, in no acute distress. VITAL SIGNS: Temperature 98.2, pulse 82, respirations 20. LUNGS: Clear. CARDIOVASCULAR: He has an S1, S2, without S3, S4 or appreciable murmur. ABDOMEN: Soft abdomen, normal bowel sounds are present. No hepatosplenomegaly. EXTREMITIES: No cyanosis, clubbing or edema. IMPRESSION AND RECOMMENDATIONS: Diarrhea with history of rectal cancer. Differential includes radiation proctitis, inflammatory bowel disease, recurrent colon cancer, polyps, collagenous colitis, microscopic colitis or diverticular disease. The diversion colitis with segmental colitis. We will recommend the patient proceed with colonoscopy with possible biopsies to further assess symptoms. YAYO/VIS/MOH DR: Mckay TID: [id number]
--- NOTE | 2020-11-08 09:11 | PATHOLOGY ---
[facility] Accession Number: [id number] . 01 Material submitted: . colon - RANDOM COLON BIOPSY . 01 Clinical history: . DIARRHEA,HX RECTAL CANCER COLONOSCOPY . 02 Diagnosis: Colonic mucosa, random colon biopsies: - No significant pathologic abnormalities. (JPM:brian; 11/07/2020) [facility] 11/07/2020 1936 Local . 02 Comment: Sections of the random colon biopsy reveal multiple segments of colonic mucosa containing a couple of mucosal-associated lymphoid aggregates. There is no evidence of a chronic destructive colitis, lymphocytic colitis, or collagenous colitis. (JPM:brian; 11/07/2020) . 02 Electronically signed: . Niraj Calixto MD, Pathologist NPI- [id number] . 01 Gross description: . Received in formalin labeled "Zahida Strong, random colon BXs" are multiple byrnes-brown soft tissue fragments measuring in aggregate 2.2 x 0.7 x 0.2 cm. The specimen is submitted entirely in A1. ([facility]; 11/05/2020) [facility] 11/05/2020 1305 Local . 02 Pathologist provided ICD-10: R19.7, Z85.048 . 02 CPT . 620194 Specimen Comment: A courtesy copy of this report has been sent to [phone], [phone] Specimen Comment: [id number] Specimen Comment: Report sent to / DR CUNHA Specimen Comment: A duplicate report has been generated due to demographic updates. Performed at: 01 [facility] [address], [place], [place] [id number] MD [address] MD Phone: [phone] Performed at: 02 [facility] [address], [place] [id number] MD Niraj Calixto MD Phone: [phone]
== END | disposition home or self-care (01) ==
LOC: SURG 08:36
PROVIDERS: ATTEND Internal Medicine Gastroenterology
DX: R19.7 Diarrhea, unspecified (principal); K64.9 Unspecified hemorrhoids; K57.30 Diverticulosis of large intestine without perforation or abscess without bleeding; K63.89 Other specified diseases of intestine; J44.9 Chronic obstructive pulmonary disease, unspecified; I10 Essential (primary) hypertension; K21.9 Gastro-esophageal reflux disease without esophagitis; M19.90 Unspecified osteoarthritis, unspecified site; F41.9 Anxiety disorder, unspecified; F32.9 Major depressive disorder, single episode, unspecified; Z87.891 Personal history of nicotine dependence; Z85.048 Personal history of other malignant neoplasm of rectum, rectosigmoid junction, and anus; Z79.899 Other long term (current) drug therapy; Z98.890 Other specified postprocedural states; Z72.89 Other problems related to lifestyle; Z88.0 Allergy status to penicillin; Z88.5 Allergy status to narcotic agent; Z91.041 Radiographic dye allergy status; Z88.8 Allergy status to other drugs, medicaments and biological substances; Z80.2 Family history of malignant neoplasm of other respiratory and intrathoracic organs
CPT/HCPCS: 45380; 88305; J1642; J2704